=== PATIENT | female | born 1960 | race Hispanic/Latino ===

== ENCOUNTER 2019-05-01 08:34 | Emergency (ER) | payer OTHER, BC ==
[~2019-05-01] VITALS: Ht 147.3 cm; Wt 80.0 kg
[~2019-05-01 08:34] MED LIST: ANUCORT-HC25 MG RE; AUGMENTIN875TAB PO; BACLOFEN10 MG PO; BENZONATATE200 MG PO; BIOTIN5000 MC2 PO; BIOTIN5000 MCG PO; CIPROFLOXACN500 MG PO; FLONASE NASAL50 MCG; KETOROLAC60 MG/2 ML IJ; LISINOP/HCTZ1 TA1 PO; NAPROSYN500 MG PO; ONDANSETRON4 MG PO; PRAVASTATIN SOD10 MG PO; PRAVASTATIN SOD20 MG PO; PREDNISONE10 MG PO; PRILOSEC40 MG PO; TAM75CAP PO
[2019-05-01 09:26] VITALS: BP 139/91
== END 2019-05-01 09:31 | disposition home or self-care (01) | DRG 605 ==
LOC: ED 08:34
DX: S00.31XA Abrasion of nose, initial encounter (principal); I10 Essential (primary) hypertension; E03.9 Hypothyroidism, unspecified; V86.55XA Driver of 3- or 4- wheeled all-terrain vehicle (ATV) injured in nontraffic accident, initial encounter